=== PATIENT | female | born 1990 ===

== ENCOUNTER 2024-12-22 18:28 | Emergency (ER) | payer MEDICAID ==
[~2024-12-22] VITALS: Ht 167.6 cm; Wt 72.7 kg
[2024-12-22 18:40] VITALS: BP 118/71; PULSE 60; RESP 20; TEMP 98.2; O2SAT 99
[2024-12-22 19:03] LABS: APPEARANCE,URINE CLEAR (CLEAR); GLUCOSE, URINE (UA) NEGATIVE (NEGATIVE); LEUKOCYTE ESTERASE ,URINE TRACE (NEGATIVE); NITRATE,URINE NEGATIVE (NEGATIVE); OCCULT BLOOD,URINE NEGATIVE (NEGATIVE); SPECIFIC GRAVITIY, URINE 1.008 (1.003-1.030)
[2024-12-22 19:12] LABS: SQUAMOUS EPITHELIAL CELL,UR Moderate /LPF (None Seen)
[2024-12-22] MEDS ORDERED: PHEN-674 PO (21:29)
[2024-12-22] MEDS ORDERED: MICO45CR76 VG (21:29)
[2024-12-22] MEDS ORDERED: CEPH-558 PO (21:29)
== END 2024-12-22 21:59 | disposition home or self-care (01) ==
LOC: EMS 18:28
DX: N39.0 Urinary tract infection, site not specified (principal)
CPT/HCPCS: 81001; 99283